=== PATIENT | female | born 1975 | race Caucasian/White ===

== ENCOUNTER 2017-01-13 14:00 | Outpatient (CLI) | payer OTHER ==
--- NOTE | 2017-01-13 15:54 | MRI ---
MR OF THE RIGHT RING FINGER WITH AND WITHOUT IV CONTRAST 01/13/17 INDICATION: Expansile mass of the dorsal palmar and radial aspect of the right ring finger. CONTRAST: The patient received 13 mL of Multihance. FINDINGS: There is increased T2 and diminished T1 signal seen surrounding the extensor tendon of the left ring finger at the level of the PIP joint. There is diffuse enhancement of this soft tissue prominence s urrounding the extensor tendon that does not extend beyond the distal margin of the proximal metaphy sis of the ring finger middle phalanx. The extensor tendon is intact. No marrow signal abnormality i s evident. The flexor tendon appears normal. The collateral ligaments of the ring finger appear inta ct. No joint effusion is noted. The subchondral bone plate of the PIP joint is preserved. Smal l amount of nonenhancing fluid is seen along the dorsal aspect of the extensor tendon on image 11 of series 11. IMPRESSION: Enhancing soft tissue signal intensity with small amount of fluid in the extensor tendon sheath of t he right ring finger, most pronounced at the ring finger PIP joint. The extensor tendon appears inta ct. The differential considerations for this finding include a nonspecific tenosynovitis that can be related to infectious (mycobacterial/fungal) granulomatous disease. Entities such as sarcoid could produce a finding such as this. A foreign body reaction could also produce a similar finding. Gout w ould also be a consideration. POS: MARY
== END 2017-01-13 14:01 | disposition home or self-care (01) ==
LOC: SCSMRI 14:00
PROVIDERS: ATTEND Orthopaedic Surgery Hand Surgery
DX: D48.9 Neoplasm of uncertain behavior, unspecified (principal)

== ENCOUNTER 2017-01-25 12:21 | Day surgery (SDC) | payer OTHER ==
[2017-01-22 14:13] VITALS: BMI 26.4
[2017-01-25] MEDS ORDERED: CEFAZOLIN/Water 2 GM/20 ML SYRINGE ONE (13:15)
[2017-01-25 13:23] LABS: #Basophils 0.1 thou/uL (0.0-0.2); #Eosinphils 0.2 thou/uL (0.0-0.7); #Lymphocytes 3.6 thou/uL (1.20-3.40); #Monocytes 0.9 thou/uL (0.11-0.59); #Neutrophils 8.7 thou/uL (1.40-6.50); %Basophils 0.9 % (0.0-1.0); %Eosinophils 1.8 % (0.0-10.0); %Lymphocytes 26.2 % (21.0-51.0); %Monocytes 6.6 % (0.0-10.0); Hematocrit 44.3 % (36.0-47.0); Mean Platelet Volume 7.3 fL (7.4-10.4); White Blood Cell (WBC) Count 13.5 thou/uL (4.8-10.8)
[2017-01-25] MEDS ORDERED: Scopolamine 1.5 mg/72 hour Patch ONE (13:23)
[2017-01-25] MEDS ORDERED: Fentanyl 100 MCG/2 ML VIAL ONE (13:24)
[2017-01-25] MEDS ORDERED: Promethazine HCl 25 MG/ML VIAL ONE (13:25)
[2017-01-25 13:44] LABS: Anion Gap 14 mmol/L (10-20); BUN (Urea Nitrogen) 7 mg/dL (7.0-18.7); Calc. Creatinine Clearance 95 mL/min (70-130); Calcium 8.5 mg/dL (7.8-10.44); Carbon Dioxide 26 mmol/L (22-29); Chloride 103 mmol/L (98-107); Estimated GFR-MDRD 82
[2017-01-25] MEDS ORDERED: Betamet Acet/Betamet Na Ph 30 MG/5 ML VIAL ONE (14:07)
[2017-01-25] MEDS ORDERED: Bacitracin Zinc Ointment 30 gm TUBE ONE (14:07)
[2017-01-25] MEDS ORDERED: Bupivacaine PF 0.5% 30 ML VIAL ONE (14:07)
[2017-01-25] MEDS ORDERED: Lidocaine 1% PF 5 ML VIAL ONE (15:20)
[2017-01-25] MEDS ORDERED: Propofol 200 MG/20 ML VIAL ONE ×2 (15:20)
[2017-01-25] MEDS ORDERED: Dexamethasone 20 MG/5 ML VIAL ONE (15:20)
[2017-01-25] MEDS ORDERED: Metoclopramide HCl 10 MG/2 ML VIAL ONE (15:20)
[2017-01-25] MEDS ORDERED: Ondansetron HCl/PF 4 MG/2 ML Vial ONE (15:20)
[2017-01-25] MEDS ORDERED: Ketorolac Tromethamine 30 MG/ML VIAL ONE ×2 (15:20→17:27)
[2017-01-25] MEDS ORDERED: HYDROcodone/Acetaminophen 7.5/325 mg Tablet ONE (18:34)
--- NOTE | 2017-01-26 06:44 | OP ---
DATE OF PROCEDURE: 01/25/2017 PREOPERATIVE DIAGNOSIS: Right ring finger proximal phalanx mass. POSTOPERATIVE DIAGNOSIS: Right ring finger proximal phalanx mass. FINDINGS: Right ring finger proximal phalanx mass extension and connection to a mass intra-articula r at the PIP joint. PROCEDURE PERFORMED: 1. Arthrotomy with excision of the intra-articular mass proximal phalangeal joint. 2. Resection of lipoma, which was overlying the other mass. SURGEON: Sukhwinder Guillermo MD COMPLICATIONS: None. TOURNIQUET TIME: 20 minutes. SPECIMEN SENT TO PATHOLOGY: Yes. An intraoperative fresh specimen was sent with findings of lipoma tous changes and intra-articular synovial type mass, both benign in appearance upon initial fresh se ctions done today. INDICATION: The patient has a mass that grew over the last 2 to 3 months without pain but began to feel tighter under the skin. The MRI showed the mass was all dorsal to the midline, and therefore, an approach would follow this in order to remove it. There were no bony changes in MRI or radiograp hs preop. DESCRIPTION OF PROCEDURE: After successful general LMA technique, the limb was prepped and draped. A 6 mL of 0.5% Marcaine was given at the base of the identified right ring finger after a timeout w as done correctly. The patient then had the limb exsanguinated, tourniquet inflated to 250 mmHg pre ssure, and then a zigzag incision outlined staying off the dorsal skin. It was radially oriented af ter the finding of a mass was slightly more radial than ulnar and stayed dorsal because of the findi ngs that it was dorsal mass. We carried through the skin and subcutaneous tissue, retracted away sm all superficial nerve branches and then found a lipoma which we dissected free, and it was approxima tely 2 cm long x 1 cm wide in the same area where the swelling correponded, but underneath this, the re was a very swollen joint bulging through an interval between the extensor mechanism and the inter osseous to the terminal tendon, so we then expanded this interval distally to cut through to e nd of the joint, lifted up the extensor mechanism and found a 1.5 x 6 mm cylindrical mass that appea red to be awllace fleshy type color and consistency still appearing benign but within the joint. Once this was completely done it via arthrotomy, the entire synovectomy joint was completed and it was th en removed. Released the tourniquet, closed the small interval between the intrinsics and the ulna and the radia l aspect of the intrinsics and then with a buried interrupted [id number] Prolene. Tourniquet was placed. Hemostasis obtained. Both specimens sent to the lab and we received a call while closing the wound indicative of the findings listed above. We then gave remaining of the 4 mL of 0.5% Marcaine to give a total of 10 and the patient had bulky dressing was applied with the woun d closed. No evidence of anesthetic or operative complication.
== END 2017-01-25 19:00 | disposition home or self-care (01) ==
LOC: SDC 12:21
PROVIDERS: ATTEND Orthopaedic Surgery Hand Surgery
PROC: 0RBW0ZX Excision of Right Finger Phalangeal Joint, Open Approach, Diagnostic (ICD-10-PCS; principal; 2017-01-25)
PROC: 0HBFXZZ Excision of Right Hand Skin, External Approach (ICD-10-PCS; principal; 2017-01-25)
DX: M79.9 Soft tissue disorder, unspecified (principal); F42.9 Obsessive-compulsive disorder, unspecified; J45.909 Unspecified asthma, uncomplicated; Z79.899 Other long term (current) drug therapy; Z90.49 Acquired absence of other specified parts of digestive tract; Z98.890 Other specified postprocedural states
CPT/HCPCS: 80048; 85025; 88305; 88331; 96372; J0131; J0702; J1100; J1170; J1885; J2001; J2405; J2550; J2704; J2765; J3010; S0020

== ENCOUNTER 2017-01-28 11:17 | Emergency (ER) | payer OTHER ==
[2017-01-28 12:05] LABS: #Basophils 0.1 thou/uL (0.0-0.2); #Eosinphils 0.1 thou/uL (0.0-0.7); #Lymphocytes 2.6 thou/uL (1.20-3.40); #Monocytes 0.8 thou/uL (0.11-0.59); #Neutrophils 8.2 thou/uL (1.40-6.50); %Eosinophils 0.6 % (0.0-10.0); %Lymphocytes 22.4 % (21.0-51.0); %Monocytes 6.6 % (0.0-10.0); Hematocrit 45.2 % (36.0-47.0); Mean Platelet Volume 6.9 fL (7.4-10.4); Red Blood Cell (RBC) Count 4.62 mill/uL (4.20-5.40); White Blood Cell (WBC) Count 11.8 thou/uL (4.8-10.8)
[2017-01-28 12:09] LABS: Bilirubin Negative (Negative); Blood, Urine Negative (Negative); Glucose, Urine (Dipstick) Negative (Negative); Ketone, Urine Negative (Negative); Nitrite Negative (Negative); Protein, Urine (Dipstick) Negative (Neg-Trace); Urobilinogen 0.2 mg/dL (0.2-1.0)
[2017-01-28 12:31] LABS: ALT (SGPT) 15 U/L (8-55); AST (SGOT) 18 U/L (5-34); Alkaline Phosphatase 52 U/L (40-150); Anion Gap 11 mmol/L (10-20); BUN (Urea Nitrogen) 8 mg/dL (7.0-18.7); Bilirubin, Total 0.4 mg/dL (0.2-1.2); Calc. Creatinine Clearance 0 mL/min (70-130); Carbon Dioxide 28 mmol/L (22-29); Chloride 101 mmol/L (98-107); Estimated GFR-MDRD 58; Lipase 8 U/L (8-78); Magnesium 2.2 mg/dL (1.6-2.6); Protein, Total 7.4 g/dL (6.0-8.3)
--- NOTE | 2017-01-28 14:22 | CT ---
BRAIN CT WITHOUT IV CONTRAST: Date: 01/28/17 HISTORY: 42-year-old female with altered mental status, diffuse tremors, blurred vision, hard time walking. FINDINGS: No focal mass or midline shift. No intra or extra-axial hemorrhage. Sinuses and mastoids are clear. IMPRESSION: No acute intracranial process. No mass or bleed. POS: H
== END 2017-01-28 15:00 | disposition home or self-care (01) ==
LOC: ERS 11:17 → EEVIPCON 11:17 → ERS 15:00
DX: R25.1 Tremor, unspecified (principal); H53.8 Other visual disturbances; F42.9 Obsessive-compulsive disorder, unspecified; F98.8 Other specified behavioral and emotional disorders with onset usually occurring in childhood and adolescence; Z79.899 Other long term (current) drug therapy
CPT/HCPCS: 70450; 80053; 81003; 81025; 83690; 83735; 84443; 85025; 93005

== ENCOUNTER 2017-12-24 07:33 | Outpatient (CLI) | payer OTHER | END 2017-12-24 07:34 | disposition home or self-care (01) | LOC: BICULT 07:33 | PROVIDERS: ATTEND Internal Medicine | DX: R10.2 Pelvic and perineal pain (principal); D25.9 Leiomyoma of uterus, unspecified; Q51.3 Bicornate uterus | CPT/HCPCS: 76856 ==

== ENCOUNTER 2018-07-29 23:22 | Emergency (ER) | payer OTHER ==
[2018-07-29] MEDS ORDERED: Proparacaine 0.5% Opth 15 ML BOT ONE (23:27)
[2018-07-29] MEDS ORDERED: Fluorescein Opthalmic Strip ONE (23:27)
== END 2018-07-30 00:22 | disposition home or self-care (01) ==
LOC: ERS 23:22
DX: S05.02XA Injury of conjunctiva and corneal abrasion without foreign body, left eye, initial encounter (principal); E03.9 Hypothyroidism, unspecified; F98.8 Other specified behavioral and emotional disorders with onset usually occurring in childhood and adolescence; Z79.899 Other long term (current) drug therapy
CPT/HCPCS: 99283

== ENCOUNTER 2020-08-26 11:35 | Outpatient (CLI) | payer OTHER | END 2020-08-26 11:36 | disposition home or self-care (01) | LOC: BICRAD 11:35 | PROVIDERS: ATTEND Internal Medicine | DX: M53.3 Sacrococcygeal disorders, not elsewhere classified (principal) | CPT/HCPCS: 72220 ==

== ENCOUNTER 2021-02-04 14:54 | Outpatient (CLI) | payer OTHER | END 2021-02-04 14:55 | disposition home or self-care (01) | LOC: BICMAMMO 14:54 | PROVIDERS: ATTEND Internal Medicine | DX: Z12.31 Encounter for screening mammogram for malignant neoplasm of breast (principal); Z98.82 Breast implant status | CPT/HCPCS: 77063; 77067 ==

== ENCOUNTER 2024-01-28 13:02 | Outpatient (CLI) | payer BC | END 2024-01-28 13:03 | disposition home or self-care (01) | LOC: BICMAMMO 13:02 | PROVIDERS: ATTEND Internal Medicine | DX: Z12.31 Encounter for screening mammogram for malignant neoplasm of breast (principal); Z98.82 Breast implant status | CPT/HCPCS: 77063; 77067 ==

== ENCOUNTER 2024-02-23 12:48 | Outpatient (CLI) | payer BC, OTHER | END 2024-02-23 12:49 | disposition home or self-care (01) | LOC: BICULT 12:48 | PROVIDERS: ATTEND Internal Medicine | DX: R10.2 Pelvic and perineal pain (principal); D25.9 Leiomyoma of uterus, unspecified | CPT/HCPCS: 76856 ==

== ENCOUNTER 2025-01-30 12:34 | Outpatient (CLI) | payer BC | END 2025-01-30 12:35 | disposition home or self-care (01) | LOC: BICMAMMO 12:34 | PROVIDERS: ATTEND Internal Medicine | DX: Z12.31 Encounter for screening mammogram for malignant neoplasm of breast (principal); Z80.3 Family history of malignant neoplasm of breast; Z98.82 Breast implant status; N63.25 Unspecified lump in the left breast, overlapping quadrants | CPT/HCPCS: 77063; 77067 ==